=== PATIENT | female | born 1950 | race Caucasian/White ===

== ENCOUNTER → 2016-10-17 | Day surgery (SDC) | payer MEDICARE ==
[~2016-10-17] MED LIST: CALCIUM 600 +1 EAC7 PO; CALCIUM 600 MG1 TA3 PO; COQ10-VIT E 201 EACH PO; EYE VITAMIN-MI1 EACH PO; FISH OIL 1,0001 CAP PO; FISH OIL 1,0001 EAC3 PO; FISH OIL 1,001000 M2 PO; GLUCOSAMINE CHOND PO; HCTZ PO; OMEPRAZOLE40 M1 PO; OYSTER CALCIUM500 MG PO; PRAVASTATIN SOD20 MG PO; PRILOSEC PO; ZESTRIL5 MG PO; ZOCOR PO; [UNRECOGNIZED DRUG - OTHER] PO
--- NOTE | ~2016-10-17 | OR ---
Unit #: [id number] #: [id number] Patient: OLU JUNE [id number] [address] [place], [place] [address] [id number] MR#: [id number] NAME: OLU JUNE ROOM: Date of Procedure: 10/17/2016 Admission Date: 10/17/2016 Surgeon: Howie Stevens Jr., M.D. : 1950 Attending Physician: Howie Stevens Jr., M.D. Primary Care Physician: Krystyna Pollard Aprn OPERATIVE REPORT INDICATIONS FOR PROCEDURE The patient is a 66-year-old white female, who has been having some intermittent rectal bleeding. She has had a known past history of colon polyps and no scope for 9 years. She is brought in this time at her request for colonoscopy to rule out recurrent polyps and determine the source of her rectal bleeding. PREOPERATIVE DIAGNOSES Rectal bleeding, past history of colon polyps, rule out recurrence. POSTOPERATIVE DIAGNOSES The patient was noted to have a single enlarged irritated slightly bleeding external hemorrhoids with several other external hemorrhoids that were not bleeding or irritated and no evidence of any polyps or other abnormalities to the distal ileum. ANESTHESIA MAC anesthesia. PROCEDURE PERFORMED Flexible colonoscopy to the distal ileum. DESCRIPTION OF PROCEDURE The patient was positioned in [place] position with left side down. After being given MAC anesthesia, digital rectal examination was performed which revealed no palpable masses or tenderness. No blood or stool in the rectal ampulla. There was enlarged internal and external hemorrhoid with some small amount of blood on it, but no evidence of any major bleeding. The Olympus colonoscope was advanced through the anal canal up the rectum and retroflexed down to the area of the anorectal region, again noted with multiple internal hemorrhoids, which were not actively bleeding. The scope was then straightened and advanced up the rectosigmoid, in the sigmoid and descending colon areas around splenic flexure and the transverse colon around hepatic flexure and the ascending colon, down the area of the cecum. The light from the tip of the scope could be seen transilluminating through right lower quadrant abdominal wall area. The scope was advanced up the distal ileum approximately 10 to 12 inches. There was no evidence of any ileitis or inflammatory bowel disease. The scope was slowly removed. There were no tumors, polyps, cancer, or AVMs. No evidence any colitis, diverticulosis, or diverticulitis. The caliber of the colon appeared normal throughout without evidence of narrowing or Unit #: [id number] #: [id number] Patient: OLU JUNE obstruction. The scope was removed. The patient tolerated the procedure well and discharged in satisfactory condition. Dictated by... Howie Stevens Jr., Chaim. VASHTI/eulogio TD: 10/18/2016 02:30 JOB #: [id number] OPERATIVE REPORT Page 1 of 1 X Howie Stevens MD X PROCEDURE OPERATIVE NOTE
== END | disposition home or self-care (01) ==
LOC: COPS 12:30
DX: K64.4 Residual hemorrhoidal skin tags (principal); Z86.010 Personal history of colon polyps; K21.9 Gastro-esophageal reflux disease without esophagitis; I10 Essential (primary) hypertension; E78.00 Pure hypercholesterolemia, unspecified
CPT/HCPCS: J2250